=== PATIENT | female | born 1980 | race Caucasian/White ===

== ENCOUNTER 2016-10-09 22:21 | Emergency (ER) | payer OTHER, BC ==
[~2016-10-09] VITALS: Ht 170.2 cm; Wt 63.5 kg
--- NOTE | 2016-10-09 22:38 | ED Lower Extremity ---
General Chief Complaint: Lower Extremity Stated Complaint: L FOOT/ANKLE PAIN Source: patient, RN notes reviewed Exam Limitations: no limitations History of Present Illness Time seen by provider: 22:38 Initial Comments As above and below. Apparently rolled her foot earlier today while @ work and it has become more painful as time as gone by. Onset: this afternoon Severity: severe (03/30) Pain/Injury Location: right foot (laterally) Method of Injury: twisted Modifying Factors: Worse With Movement, Improves With Rest Allergies and Home Medications Allergies Coded Allergies: Penicillins (Verified Allergy, Unknown, 10/09/16) Home Medications Naproxen Sodium 550 Mg Tablet, 550 MG PO Q12H, #20 Ref 0 Prescribed by: MORELIA VAUGHAN on 10/09/16 2348 Norgestrel-Ethinyl Estradiol 1 Each Tablet, #84 (Reported) Tramadol HCl 50 Mg Tablet, 50-100 MG PO Q6H PRN for FOOT PAIN, #20 Ref 0 Prescribed by: MORELIA VAUGHAN on 10/09/16 2348 Constitutional: see HPI : No Musculoskeletal: see HPI, other (right lateral foot pain) All Other Systems Reviewed Negative Unless Noted: Yes (Negative excepted noted.) Past Ntybqoz-Uaoibh-Kfxovd Hx Patient Social History Recent Foreign Travel: No Contact w/Someone Who Travel: No Physical Exam Vital Signs Vital Sign - Last 12Hours 10/09/16 22:37 Temp 98.1 Pulse 99 Resp 18 B/P (MAP) 128/92 Pulse Ox 100 O2 Delivery Room Air Capillary Refill : General Appearance: WD/WN, no apparent distress Cardiovascular: regular rate, rhythm Respiratory: no respiratory distress Ankles: right ankle non-tender, right ankle normal inspection, right ankle normal range of motion, right ankle no evidence of injury Feet: right foot bone tenderness (area of 5th metatarsal head), right foot limited range of motion, right foot pain (laterally in area of 5th metatarsal head), right foot swelling (trace in area of 5th metatarsal head) Neurologic/Tendon: normal sensation, normal motor functions, responds to pain Neurologic/Psychiatric: no motor/sensory deficits, alert, oriented x 3 Skin: warm/dry Progress/Results/Core Measures Results/Orders My Orders Orders - MORELIA VAUGHAN DO Hydrocodone/Apap 5/325 Tablet (Lortab 5 (10/09/16 23:15) Foot, Right, 3 View (10/09/16 23:07) Babar Bandage (10/09/16 23:45) Medications Given in ED Current Medications Medications Dose Ordered Sig/Claribel Route Start Time Stop Time Status Last Admin Dose Admin Acetaminophen/ Hydrocodone Bitart 2 tab ONCE ONCE PO 10/09/16 23:15 10/09/16 23:16 DC 10/09/16 23:44 2 TAB Vital Signs/I&O Vital Sign - Last 12Hours 10/09/16 10/09/16 22:37 23:57 Temp 98.1 Pulse 99 68 Resp 18 18 B/P (MAP) 128/92 Pulse Ox 100 98 O2 Delivery Room Air Diagnostic Imaging Diagonstic Imaging: Xray Plain Films/CT/US/NM/MRI: other (right foot appears negative for anything acute) Departure Impression Impression: Primary Impression: Sprain and strain of foot Disposition: 01 HOME, SELF-CARE Condition: Stable Departure-Patient Inst. Decision time for Depature: 23:46 Referrals: BRIANNE AGUILAR DO Patient Instructions: Sprain (DC) Scripts Naproxen Sodium (Anaprox Ds) 550 Mg Tablet 550 MG PO Q12H for FOOT PAIN/SWELLING, #20 TAB 0 Refills Prov: MORELIA VAUGHAN DO 10/09/16 Tramadol HCl (Tramadol HCl) 50 Mg Tablet 50-100 MG PO Q6H Y for FOOT PAIN, #20 TAB 0 Refills Prov: MORELIA VAUGHAN DO 10/09/16 MORELIA VAUGHAN DO Oct 09, 2016 22:38
[2016-10-09] MEDS ORDERED: NORG1TAB16 (22:51)
[2016-10-09] MEDS ORDERED: HYDROcodone/APAP 5 MG/325 MG (LORTAB) TAB PO ONE (23:15)
[2016-10-09] MEDS ORDERED: TRAM50TA2 PO (23:48)
[2016-10-09] MEDS ORDERED: NAPR550T PO (23:48)
[2016-10-09 23:57] VITALS: BP 128/90
--- NOTE | 2016-10-10 08:30 | Diagnostic Imaging Report ---
INDICATION: Right foot pain after fall. 3 views of the foot were obtained. These are labeled left foot although the history states right foot. 3 images of which ever foot this is show no fracture, dislocation or acute abnormalities. IMPRESSION: Films labeled left foot. This is interpreted as a negative left foot. Dictated by: Dictated on workstation # [id number]
== END 2016-10-09 23:56 | disposition home or self-care (01) ==
LOC: EDUNIT# 22:21 → ER 22:23
DX: S93.601A Unspecified sprain of right foot, initial encounter (principal); S96.901A Unspecified injury of unspecified muscle and tendon at ankle and foot level, right foot, initial encounter; X50.9XXA Other and unspecified overexertion or strenuous movements or postures, initial encounter; Y99.0 Civilian activity done for income or pay
CPT/HCPCS: 73630; 99283